=== PATIENT | female | born 1955 | race Caucasian/White ===

== ENCOUNTER → 2016-08-25 | Outpatient (CLI) | payer OTHER ==
[~2016-08-25] MED LIST: ACETAZOLAMIDE PO; ANT25 PO; BSP5 PO; CLOT-40 TOP; CLTP PO; DLN100 PO; IBUP600T44 PO; PHEN1TAB86 PO; SUMA50TA15 PO; TOPI25TA99 PO
--- NOTE | 2016-08-25 16:45 | MAMMOGRAPHY REPORT ---
BILATERAL DIGITAL SCREENING MAMMOGRAM WITH CAD: 08/25/2016 CLINICAL HISTORY: Routine screening. Patient has no complaints. TECHNIQUE: Bilateral CC and MLO views were obtained. Current study was also evaluated with a Comput er Aided Detection (CAD) system. COMPARISON: Comparison is made to exams dated: 08/13/2015 mammogram, 07/31/2014 mammogram - [facility], 07/28/2013 mammogram, 07/27/2012 mammogram - [facility], 07/03/2011 mammogram, and 07/01/2010 mammogram - [facility]. BREAST COMPOSITION: The tissue of both breasts is heterogeneously dense, which may obscure small ma sses. FINDINGS: There is a grouping of punctate microcalcifications in the upper outer posterior right yvette ast, which has decreased in size compared to prior mammograms, confirming benignity. No new suspici ous mass, architectural distortion or cluster of microcalcifications is seen. IMPRESSION: ACR BI-RADS CATEGORY 1: NEGATIVE There is no mammographic evidence of malignancy. A 1 year screening mammogram is recommended. The p atient will receive written notification of the results. Approximately 10% of breast cancers are not detected with mammography. A negative mammographic repor t should not delay biopsy if a clinically suggestive mass is present. Yudi Pollock M.D. ay/:08/25/2016 16:05:02 Steward/Stewardess Third: Anne-Marie GOMES)([place]), [facility] letter sent: Normal 1/2 BI-RADS Code: ACR BI-RADS Category 1: Negative
== END | disposition home or self-care (01) ==
LOC: C.MAMM 13:38
PROVIDERS: ATTEND Family Medicine
DX: Z12.31 Encounter for screening mammogram for malignant neoplasm of breast (principal)

== ENCOUNTER 2016-11-05 14:54 | Emergency (ER) | payer OTHER ==
[~2016-11-05] VITALS: Ht 160 cm; Wt 97.1 kg
[~2016-11-05 14:54] MED LIST changes: -CLOT-40 TOP
[2016-11-05 15:18] VITALS: BP 126/79; PULSE 73; TEMP 36.7; O2SAT 96; Ht 160 cm; Wt 97.1 kg
[2016-11-05] MEDS ORDERED: CLOT1CRE4 TOP (15:33)
--- NOTE | 2016-11-05 15:36 | EMERGENCY ROOM VISIT NOTE ---
History First contact with patient: 15:22 Chief Complaint: SKIN PROBLEM Stated Complaint: MARGUERITE ON ARM History of Present Illness The patient is a 61 year old female who presents to the Emergency Room via private vehicle with complaints of "marguerite on arm". The patient states that since yesterday she has noticed a slightly reddened raised region on the left forearm. It is not painful or itchy. She denies any nausea, vomiting, fevers or chills. Review of Systems A complete 6-point Review of Systems was discussed with the patient, with pertinent positives and negatives listed in the History of Present Illness. All remaining Review of Systems questions can be considered negative unless otherwise specified. Past Medical/Surgical History No pertinent Family History No pertinent Social History Smoking Status: Never Smoker Social History: Patient lives locally. Current/Historical Medications Scheduled Buspirone Hcl (Buspar *), 10 MG PO TID Calcium/Vitamin D (Caltrate 600 Plus *), 2 TAB PO BID Clotrimazole (Topical) (Lotrimin Af), 1 APPLN TOP BID Ibuprofen (Motrin), 600 MG PO Q6HR PRN Meclizine (Antivert *), 25 MG PO TID PRN Phenobarbital (Phenobarbital), 60 MG PO BID Phenytoin Sodium (Dilantin *), 100 MG PO TID Sumatriptan Succinate (Imitrex), 50 MG PO PRN Topiramate (Topamax ), 25 MG PO TID [Acetazolamide], 250 MG PO QID Allergies Coded Allergies: Aspirin (Unverified Allergy, Mild, "GET SICK", 06/08/09) Physical Exam Vital Signs Date Time Temp Pulse Resp B/P (MAP) Pulse Ox O2 Delivery O2 Flow Rate FiO2 11/05/16 15:18 36.7 73 22 126/79 96 Room Air Physical Exam VITAL SIGNS - Vital signs and nursing notes were reviewed. Stable. GENERAL -61-year-old female appearing her stated age who is in no acute distress. Communicates well with provider and answers questions appropriately. SKIN - there is a small, slightly raised red and circular region on the left ventral forearm that is consistent with that of tinea corporis. Medical Decision & Procedures Medical Decision Patient was seen and evaluated as above. After obtaining a thorough history and physical examination it was evident that she was experiencing a fungal infection, tinea corporis. At this time and treat her with topical antifungals , with close follow-up with her family doctor. She'll be given antifungal cream. No evidence of cellulitis at this time. She was educated upon worrisome symptoms which to return, had questions prior to discharge, and was discharged home in good condition. In evaluation treatment this patient following differential diagnoses were entertained: Cellulitis, burn, fungal infection, among others. Impression Primary Impression: Tinea corporis Departure Information Dispostion Home / Self-Care Condition GOOD Prescriptions Clotrimazole (Topical) (LOTRIMIN AF) 1 % Cre 1 APPLN TOP BID for 28 Days, #24 GM 1 Refill Prov: Gabriel Mendez PA-C 11/05/16 Referrals Drake Che III, M.D. (PCP) Patient Instructions My [facility] Additional Instructions You were seen in the emergency Department for redness of your skin. At this time I believe you have a small fungal infection, called ringworm or tinea corporis. This is treated with antifungal cream, he had been prescribed clotrimazole. This was sent to your pharmacy. This is to be applied as a small amount to your skin where the redness is on your arm, twice daily for up to 4 weeks. Please wash your hands after. Please call your family doctor to schedule follow-up regarding today's visit. Please return to emergency department with any new/concerning symptoms, such as worsening of the redness, fevers, chills.
== END 2016-11-05 15:45 | disposition home or self-care (01) ==
LOC: C.EDB 14:54 → C.EDD 15:45
DX: B35.4 Tinea corporis (principal); Z79.899 Other long term (current) drug therapy

== ENCOUNTER 2016-11-09 10:44 | Emergency (ER) | payer OTHER ==
[~2016-11-09] VITALS: Ht 162.6 cm; Wt 90.2 kg
[~2016-11-09 10:44] MED LIST changes: +CLOT1CRE4 TOP
[2016-11-09 10:49] VITALS: TEMP 36.9; Ht 162.6 cm; Wt 90.2 kg
--- NOTE | 2016-11-09 12:02 | DIAGNOSTIC IMAGING REPORT ---
RIGHT ANKLE 3 VIEWS CLINICAL HISTORY: Right ankle injury. Fall yesterday. FINDINGS: 3 views of the right ankle are obtained. No prior studies are available for comparison at the time of dictation. The skeletal structures are osteopenic. No fracture is seen at the ankle joint. There is a questionable avulsed injury along the medial aspect of the foot seen only on the frontal view. The ankle mortise is intact. Degenerative spurring is seen along the dorsal aspect of the tarsal bones. There are dorsal and plantar calcaneal enthesophytes. A joint effusion is identified. Soft tissue edema is present throughout the visualized right lower extremity. IMPRESSION: 1. Soft tissue edema and joint effusion with no radiographic evidence of fracture at the ankle joint. 2. Question an avulsion fracture along the medial aspect of the foot. This is only seen on the frontal view and may arise from the calcaneus. Correlate for point tenderness at this site. Electronically signed by: Radames Morrison M.D. 11/09/2016 12:00 PM Dictated Date/Time: 11/09/2016 11:58 AM
--- NOTE | 2016-11-09 12:07 | EMERGENCY ROOM VISIT NOTE ---
ED Visit Note First contact with patient: 11:20 This Patient was discussed with the physician veterinary technician assistant, Arnaldo Castle PA-C. The pertinent historical and physical exam findings were confirmed. I agree with the studies ordered and with the interpretations of these studies. I agree with the disposition and care plan.
--- NOTE | 2016-11-09 12:44 | EMERGENCY ROOM VISIT NOTE ---
ED Visit Note First contact with patient: 11:20 CHIEF COMPLAINT: Ankle pain HISTORY OF PRESENT ILLNESS: This 61-year-old female patient presents to the emergency department after sustaining an injury to the right ankle and foot with a twisting, inversion motion after stepping in a hole in a grocery store parking lot roughly 14 hours ago. The patient complains of pain along the outside of the ankle. The patient does not have pain of the foot. The patient rates the pain as dull and 2/10. The patient is able to bear weight on the foot. Constant pain, worse with movement, weight bearing, and the dependent position. No knee pain, the patient is able to move their toes. No numbness or weakness of the foot, no laceration. The patient has not had a previous fracture to this ankle. The patient has taken nothing for the pain. The patient denies any other injury. REVIEW OF SYSTEMS: A 6 system review of systems was completed with positives and pertinent negatives listed in the HPI. ALLERGIES: No known allergies MEDICATIONS: See EMR PMH: See EMR SOCIAL HISTORY: Lives locally PHYSICAL EXAM: Vital Signs: Reviewed Nurse's notes, vital signs stable. GENERAL : White female, no acute distress, but appears in pain, well-developed, well- nourished. MENTAL STATUS: Alert, oriented to person place and time, and cooperative. MUSCULOSKELETAL: The right ankle is not swollen and tender over the lateral malleolus, but the skin is intact and there is no ligamentous instability. There is not fifth metatarsal tenderness. There is no tenderness over the rest of the foot. There is no calf or tibia/fibular tenderness. There is no visual deformity. The foot and toes are warm and well-perfused. Dorsalis pedis pulse 2+. Sensation to pain and light touch is intact. Capillary refill less than 2 seconds. RIGHT ANKLE 3 VIEWS CLINICAL HISTORY: Right ankle injury. Fall yesterday. FINDINGS: 3 views of the right ankle are obtained. No prior studies are available for comparison at the time of dictation. The skeletal structures are osteopenic. No fracture is seen at the ankle joint. There is a questionable avulsed injury along the medial aspect of the foot seen only on the frontal view. The ankle mortise is intact. Degenerative spurring is seen along the dorsal aspect of the tarsal bones. There are dorsal and plantar calcaneal enthesophytes. A joint effusion is identified. Soft tissue edema is present throughout the visualized right lower extremity. IMPRESSION: 1. Soft tissue edema and joint effusion with no radiographic evidence of fracture at the ankle joint. 2. Question an avulsion fracture along the medial aspect of the foot. This is only seen on the frontal view and may arise from the calcaneus. Correlate for point tenderness at this site. EMERGENCY DEPARTMENT COURSE: I examined the patient. X-rays of the right ankle were reviewed by myself and read by radiology and reveal no fracture of the ankle joint. The x-ray showed a questionable avulsion fracture along the medial foot. On reexamination the patient was without tenderness throughout this distribution. She has also without significant tenderness of the calcaneus. An Brian wrap was applied to the ankle under my direction and the position was satisfactory. The patient was given a walker. Neurovascular status was rechecked and intact. She will need to follow with orthopedics with any ongoing or persistent symptoms. Current/Historical Medications Scheduled Buspirone Hcl (Buspar *), 10 MG PO TID Calcium/Vitamin D (Caltrate 600 Plus *), 2 TAB PO BID Meclizine (Antivert *), 25 MG PO TID PRN Phenobarbital (Phenobarbital), 60 MG PO BID Phenytoin Sodium (Dilantin *), 100 MG PO TID Sumatriptan Succinate (Imitrex), 50 MG PO PRN Topiramate (Topamax ), 25 MG PO BID Allergies Coded Allergies: Aspirin (Unverified Allergy, Mild, "GET SICK", 11/09/16) Vital Signs Date Time Temp Pulse Resp B/P (MAP) Pulse Ox O2 Delivery O2 Flow Rate FiO2 11/09/16 10:49 36.9 75 18 161/91 95 Room Air Departure Information Impression Primary Impression: Injury of right ankle Dispostion Home / Self-Care Condition GOOD Referrals Nick Navarrete MD Forms HOME CARE DOCUMENTATION FORM, IMPORTANT VISIT INFORMATION Patient Instructions My [facility] Additional Instructions You were seen and evaluated today on an emergency basis only. This is not a substitute for, or an effort to provide, complete comprehensive medical care. It is not possible to recognize and treat all injuries or illnesses in a single emergency department visit. For this reason it is recommended that you followup with [facility] , Dr. Navarrete's office, this week for ongoing care and evaluation. For baseline pain relief you may alternate ibuprofen and acetaminophen every 4 hours for pain control. Take 600 mg ibuprofen (Advil) and then 4 hours later take 1000 mg acetaminophen (Tylenol). Do not take more than 3000 mg acetaminophen in a single day. Wear your splint and use your walker until otherwise instructed by orthopedics. You are welcome to return to the emergency department anytime with new, worsening, or concerning symptoms.
[2016-11-09 12:45] VITALS: BP 137/88; PULSE 83; O2SAT 98
== END 2016-11-09 12:45 | disposition home or self-care (01) ==
LOC: EDBD 10:44 → C.EDB 10:45
DX: S99.911A Unspecified injury of right ankle, initial encounter (principal); X50.9XXA Other and unspecified overexertion or strenuous movements or postures, initial encounter

== ENCOUNTER → 2017-08-31 | Outpatient (CLI) | payer OTHER ==
[~2017-08-31] MED LIST changes: -ACETAZOLAMIDE PO; -CLOT1CRE4 TOP; -IBUP600T44 PO
--- NOTE | 2017-09-01 12:47 | MAMMOGRAPHY REPORT ---
BILATERAL DIGITAL SCREENING MAMMOGRAM TOMOSYNTHESIS WITH CAD: 08/31/2017 CLINICAL HISTORY: Routine screening. Patient has no complaints. TECHNIQUE: Breast tomosynthesis in addition to standard 2D mammography was performed. Current study was also evaluated with a Computer Aided Detection (CAD) system. COMPARISON: Comparison is made to exams dated: 08/25/2016 mammogram, 08/13/2015 mammogram, 07/31/2014 m ammogram - [facility], 07/28/2013 mammogram, 07/27/2012 mammogram - [facility], and 07/03/2011 mammogram - [facility]. BREAST COMPOSITION: The tissue of both breasts is heterogeneously dense, which may obscure small mas ses. FINDINGS: The pattern is similar to prior mammograms. A cluster of punctate microcalcifications in t he upper outer posterior right breast is decreasing in size comparing back to the 2009 mammograms, co nfirming benignity. No new suspicious mass, architectural distortion or cluster of microcalcificatio ns is seen. IMPRESSION: ACR BI-RADS CATEGORY 1: NEGATIVE There is no mammographic evidence of malignancy. A 1 year screening mammogram is recommended. The pa tient will receive written notification of the results. Approximately 10% of breast cancers are not detected with mammography. A negative mammographic report should not delay biopsy if a clinically suggestive mass is present. Yudi Pollock M.D. ay/:08/31/2017 17:09:18 Branch Service Specialist: Evelina NIELSEN(R)(M), [facility] letter sent: Normal 1/2 BI-RADS Code: ACR BI-RADS Category 1: Negative
== END | disposition home or self-care (01) ==
LOC: C.MAMM 14:28
PROVIDERS: ATTEND Physician Assistant
DX: Z12.31 Encounter for screening mammogram for malignant neoplasm of breast (principal)

== ENCOUNTER 2021-05-25 06:21 | Inpatient (IN) ==
[2021-05-25] MEDS ORDERED: SODIUM CHLORIDE 0.9% 1000ML 500 ML IV ONE (06:39)
--- NOTE | 2021-05-25 06:45 | Emergency Department Note ---
History of Present Illness General Chief complaint: Abdominal Pain Stated complaint: ABDOMINAL PAIN/NO BM FOR SEVERAL DAYS; Time Seen by Provider: 05/25/21 06:29 Source: patient, RN notes reviewed and old records reviewed Mode of arrival: EMS Limitations: no limitations History of Present Illness Maximum Pain Intensity: 8 This patient is a 66-year-old female who is brought in by EMS after having lower abdominal pain and no bowel movement for 3 to 4 days. She has also had dysuria and frequency. She does have a history of seizure disorder but denies any recent seizures. She initially denied nausea and vomiting but then told me she was not taking her Dilantin for couple days because she felt nauseated. Denies fever or chills. She has had the COVID-vaccine but no booster she has mild back pain no numbness or weakness in her legs no fall or trauma. No shortness of breath or chest pain. No trauma or injury. Nothing particular makes her pain better or worse. Home Medications Medication Instructions Recorded Confirmed Type buspirone 10 mg tablet 10 mg PO TID 03/13/20 05/25/21 History furosemide 20 mg tablet 20 mg PO Q OTHER DAY 03/13/20 05/25/21 History phenobarbital 32.4 mg tablet 32.4 mg PO BID 03/13/20 05/25/21 History sumatriptan succinate 50 mg tablet 50 mg PO Q2H PRN 03/13/20 05/25/21 History topiramate 25 mg tablet (Topamax) 25 mg PO BID 03/13/20 05/25/21 History phenytoin sodium extended 100 mg 100 mg PO TID 05/25/21 05/25/21 History capsule Allergies Allergy/AdvReac Type Severity Reaction Status Date / Time aspirin Allergy Mild "GET SICK" Unverified 05/25/21 08:12 Past Med/Surg History Medical History Left asymmetrical SNHL Seizure disorder Sensorineural hearing loss (SNHL) of left ear with restricted hearing of right ear Family History Other Cancer Hypertension No family history of adverse response to anesthesia No family history of bleeding disorder Social History Smoking Status: Never smoker Hx Alcohol Use: No Hx Substance Use: No Preferred Language: Singaporean Feels Safe at Home: Yes Review of Systems A total of 10 systems reviewed and were otherwise negative Physical Exam Vital Signs Vital Signs - 24 hr 05/25/21 06:26 05/25/21 06:32 05/25/21 06:50 Temperature 36.7 C Temperature Source Oral Pulse Rate 77 75 Pulse Rate [Finger] 77 Pulse Rhythm Regular Pulse Rhythm [Finger] Regular Pulse Strength Normal Pulse Strength [Finger] Normal Respiratory Rate 18 18 18 Respiratory Effort / Characteristics Non-Labored Spontaneous Non-Labored Spontaneous Respiratory Depth Normal Normal Blood Pressure 175/86 H Blood Pressure [Right Arm] 175/86 H Blood Pressure Mean 115 Blood Pressure Mean [Right Arm] 115 Blood Pressure Position Lying Blood Pressure Position [Right Arm] Lying Pulse Oximetry 99 99 99 Oxygen Delivery Method Room Air Room Air Room Air Sepsis Recent Fever Within 48 Hours No Sepsis New/Unexplained Change in Mental Status No Sepsis Action Taken by Nursing No Action Required 05/25/21 07:40 Temperature Temperature Source Pulse Rate Pulse Rate [Finger] 78 Pulse Rhythm Pulse Rhythm [Finger] Pulse Strength Pulse Strength [Finger] Respiratory Rate 18 Respiratory Effort / Characteristics Respiratory Depth Blood Pressure Blood Pressure [Right Arm] 159/78 H Blood Pressure Mean Blood Pressure Mean [Right Arm] 105 Blood Pressure Position Blood Pressure Position [Right Arm] Lying Pulse Oximetry 99 Oxygen Delivery Method Room Air Sepsis Recent Fever Within 48 Hours Sepsis New/Unexplained Change in Mental Status Sepsis Action Taken by Nursing General: Well developed well nourished middle-aged female who appears mildly hard of hearing but in no acute distress, breathing comfortably on room air. Normal speech HEENT: Normal cephalic atraumatic. Pupils are equal round and reactive to light. Extraocular movements are intact. Oropharynx is pink with moist mucous membranes. No swelling of the mouth lips or tongue. Neck: Supple with a midline trachea. No meningeal signs or stiffness, no JVD or bruits. No Stridor. Chest: Clear to auscultation bilaterally. No wheezes or rhonchi. No increased work of breathing. Heart: Regular rate and rhythm without murmurs or gallops. Abdomen: Soft mildly diffusely tender in the lower abdomen, nondistended without rebound guarding or rigidity. No peritonitis Extremities: No cyanosis clubbing or edema. No calf tenderness or assymetry Spine/Back. Non tender to palpation. No CVA tenderness Skin: Good turgor without rashes. Neurologic exam: Cranial nerves two through 12 are intact. Motor and sensation are intact and symmetrical throughout. No tremor. Course Administered Medications Acetaminophen (Acetaminophen 500 Mg Tab) 500 mg PO TID MARIA ANTONIA Stop: 06/24/21 08:59 Last Admin: 05/25/21 14:47 Dose: 500 mg Documented by: [id number] Admin: 05/25/21 09:14 Dose: 500 mg Documented by: [id number] Buspirone HCl (Buspirone 5 Mg Tab) 10 mg PO TID MARIA ANTONIA Stop: 06/24/21 11:14 Last Admin: 05/25/21 14:42 Dose: 10 mg Documented by: [id number] Admin: 05/25/21 12:14 Dose: 10 mg Documented by: [id number] Sodium Chloride (Nss 1000ml) 1,000 mls @ 75 mls/hr IV .[id number] MARIA ANTONIA Stop: 06/24/21 10:54 Last Admin: 05/25/21 12:31 Dose: 75 mls/hr Documented by: [id number] Multivitamins/Minerals (Calcium 600mg + Vit D 400 Iu Tab) 1 tab PO BID MARIA ANTONIA Stop: 06/24/21 10:54 Last Admin: 05/25/21 12:13 Dose: 1 tab Documented by: [id number] Phenobarbital (Phenobarbital 32.4 Mg Tab) 32.4 mg PO BID MARIA ANTONIA Stop: 06/24/21 10:54 Last Admin: 05/25/21 12:14 Dose: 32.4 mg Documented by: [id number] Polyethylene Glycol (Polyethylene (Miralax) 17 Gm Pack) 17 gm PO DAILY MARIA ANTONIA Stop: 06/24/21 10:54 Last Admin: 05/25/21 14:42 Dose: 17 gm Documented by: [id number] Discontinued Medications Sodium Chloride (Nss 1000ml) 500 mls @ 999 mls/hr IV .Q31M ONE Stop: 05/25/21 07:09 Last Infusion: 05/25/21 07:43 Dose: 0 mls/hr Documented by: [id number] Admin: 05/25/21 06:53 Dose: 999 mls/hr Documented by: [id number] Potassium Chloride (K David / Wtr) 10 meq in 100 mls @ 100 mls/hr IV Q1H STA; Protocol Stop: 05/25/21 09:52 Last Infusion: 05/25/21 10:15 Dose: 0 mls/hr Documented by: [id number] Admin: 05/25/21 09:11 Dose: 100 mls/hr Documented by: [id number] Ioversol (Optiray 320 100ml) 94 ml IV ONCE ONE Stop: 05/25/21 07:17 Last Admin: 05/25/21 07:17 Dose: 94 ml Documented by: [id number] Phenytoin (Phenytoin Susp 125 Mg/5 Ml) 300 mg PO ONE ONE Stop: 05/25/21 09:16 Last Admin: 05/25/21 09:12 Dose: 300 mg Documented by: [id number] Medical Decision Making Differential Diagnosis Bowel obstruction, constipation, UTI, kidney stone, sepsis, viral illness, electrolyte or metabolic abnormality, colitis, appendicitis, diverticulitis, COVID, neurologic process, medication side effect Medical Records Attestation: I reviewed the patient's medical records. Home Medications Current Medication List: was personally reviewed by me Laboratory Data Attestation: I reviewed the patient's lab results. Result diagrams: 05/25/21 11:24 05/25/21 11:24 Lab Results 05/25/21 05/25/21 05/25/21 Range/Units 06:50 06:50 06:50 WBC 4.85 (4.8-10.8) K/uL RBC 3.95 L (4.2-5.4) M/uL Hgb 12.8 (12.0-16.0) g/dL POC Hgb (12.0-16.0) g/dl Hct 35.5 L (37-47) % POC Hct (37-47) % MCV 89.9 (80-100) fL MCH 32.4 (25-34) pg MCHC 36.1 H (32-36) g/dL RDW Std Deviation 41.5 (36.4-46.3) fL RDW Coeff of Frantz 12.5 (11.5-14.5) % Plt Count 332 (130-400) K/uL MPV 9.1 (7.4-10.4) fL Immature Gran % (Auto) 0.0 % Neut % (Auto) 61.9 % Lymph % (Auto) 23.1 % [place] % (Auto) 14.2 % Eos % (Auto) 0.4 % Baso % (Auto) 0.4 % Neut # (Auto) 3.00 (1.4-6.5) K/uL Lymph # (Auto) 1.12 L (1.2-3.4) K/uL [place] # (Auto) 0.69 H (0.11-0.59) K/uL Eos # (Auto) 0.02 (0-0.5) K/uL Baso # (Auto) 0.02 (0-0.2) K/uL Immature Gran # (Auto) 0.00 (0.00-0.02) K/uL POC Sodium (135-144) mmol/L Sodium 124 L (136-145) mmol/L POC Potassium (3.3-5.0) mmol/L Potassium 3.1 L (3.5-5.1) mmol/L POC Chloride (101-112) mmol/L Chloride 91 L (98-107) mmol/L Carbon Dioxide 25 (21-32) mmol/L POC Total CO2 (24-31) mmol/L Anion Gap 8 (3-11) POC Anion Gap (16-25) mmol/L POC BUN (7-18) mg/dl BUN 4 L (6-23) mg/dl Creatinine 0.61 (0.6-1.2) mg/dl POC Creatinine (0.6-1.3) mg/dl Est Cr Clr Drug Dosing 88.6 ml/min Est GFR ( Amer) 108.7 ml/min Est GFR (Non-Af Amer) 93.8 ml/min BUN/Creatinine Ratio 6.6 L (10-20) Glucose 125 H (70-99(Fasting)) mg/dl POC Glucose (other) (70-99) mg/dl Calcium 8.8 (8.5-10.1) mg/dl POC Ioniz Calcium [place] (1.12-1.32) mmol/l Total Bilirubin 0.6 (0.2-1.0) mg/dl AST 18 (13-39) U/L ALT 10 (7-52) U/L Alkaline Phosphatase 79 (34-104) U/L Total Protein 6.7 (6.0-8.3) gm/dl Albumin 4.0 (3.4-5.0) gm/dl Globulin 2.7 (2.5-4.0) gm/dl Albumin/Globulin Ratio 1.5 (0.9-2) Lipase 19 (11-82) U/L Urine Color Urine Appearance (Clear) Urine pH (4.5-7.5) Ur Specific [place] (1.000-1.030) Urine Protein (Negative) Urine Glucose (UA) (Negative) Urine Ketones (Negative) Urine Blood (Negative) Urine Nitrite (Negative) Urine Bilirubin (Negative) Urine Urobilinogen (Negative) Ur Leukocyte Esterase (Negative) Phenytoin < 3.0 L (10-20) mcg/ml Phenobarbital (10-40) mcg/ml SARS-CoV-2, RNA, NAAT (NEGATIVE) 05/25/21 05/25/21 05/25/21 Range/Units 06:57 07:48 08:22 WBC (4.8-10.8) K/uL RBC (4.2-5.4) M/uL Hgb (12.0-16.0) g/dL POC Hgb 12.6 (12.0-16.0) g/dl Hct (37-47) % POC Hct 37 (37-47) % MCV (80-100) fL MCH (25-34) pg MCHC (32-36) g/dL RDW Std Deviation (36.4-46.3) fL RDW Coeff of Frantz (11.5-14.5) % Plt Count (130-400) K/uL MPV (7.4-10.4) fL Immature Gran % (Auto) % Neut % (Auto) % Lymph % (Auto) % [place] % (Auto) % Eos % (Auto) % Baso % (Auto) % Neut # (Auto) (1.4-6.5) K/uL Lymph # (Auto) (1.2-3.4) K/uL [place] # (Auto) (0.11-0.59) K/uL Eos # (Auto) (0-0.5) K/uL Baso # (Auto) (0-0.2) K/uL Immature Gran # (Auto) (0.00-0.02) K/uL POC Sodium 125 L (135-144) mmol/L Sodium (136-145) mmol/L POC Potassium 3.0 L (3.3-5.0) mmol/L Potassium (3.5-5.1) mmol/L POC Chloride 88 L (101-112) mmol/L Chloride (98-107) mmol/L Carbon Dioxide (21-32) mmol/L POC Total CO2 24 (24-31) mmol/L Anion Gap (3-11) POC Anion Gap 17.0 (16-25) mmol/L POC BUN < 3 L (7-18) mg/dl BUN (6-23) mg/dl Creatinine (0.6-1.2) mg/dl POC Creatinine 0.5 L (0.6-1.3) mg/dl Est Cr Clr Drug Dosing ml/min Est GFR ( Amer) ml/min Est GFR (Non-Af Amer) ml/min BUN/Creatinine Ratio (10-20) Glucose (70-99(Fasting)) mg/dl POC Glucose (other) 131 H (70-99) mg/dl Calcium (8.5-10.1) mg/dl POC Ioniz Calcium [place] 1.13 (1.12-1.32) mmol/l Total Bilirubin (0.2-1.0) mg/dl AST (13-39) U/L ALT (7-52) U/L Alkaline Phosphatase (34-104) U/L Total Protein (6.0-8.3) gm/dl Albumin (3.4-5.0) gm/dl Globulin (2.5-4.0) gm/dl Albumin/Globulin Ratio (0.9-2) Lipase (11-82) U/L Urine Color Yellow Urine Appearance Clear (Clear) Urine pH 8.0 H (4.5-7.5) Ur Specific [place] 1.010 (1.000-1.030) Urine Protein Negative (Negative) Urine Glucose (UA) Negative (Negative) Urine Ketones Negative (Negative) Urine Blood Negative (Negative) Urine Nitrite Negative (Negative) Urine Bilirubin Negative (Negative) Urine Urobilinogen Negative (Negative) Ur Leukocyte Esterase Negative (Negative) Phenytoin (10-20) mcg/ml Phenobarbital (10-40) mcg/ml SARS-CoV-2, RNA, NAAT NEGATIVE (NEGATIVE) 05/25/21 Range/Units 08:46 WBC (4.8-10.8) K/uL RBC (4.2-5.4) M/uL Hgb (12.0-16.0) g/dL POC Hgb (12.0-16.0) g/dl Hct (37-47) % POC Hct (37-47) % MCV (80-100) fL MCH (25-34) pg MCHC (32-36) g/dL RDW Std Deviation (36.4-46.3) fL RDW Coeff of Frantz (11.5-14.5) % Plt Count (130-400) K/uL MPV (7.4-10.4) fL Immature Gran % (Auto) % Neut % (Auto) % Lymph % (Auto) % [place] % (Auto) % Eos % (Auto) % Baso % (Auto) % Neut # (Auto) (1.4-6.5) K/uL Lymph # (Auto) (1.2-3.4) K/uL [place] # (Auto) (0.11-0.59) K/uL Eos # (Auto) (0-0.5) K/uL Baso # (Auto) (0-0.2) K/uL Immature Gran # (Auto) (0.00-0.02) K/uL POC Sodium (135-144) mmol/L Sodium (136-145) mmol/L POC Potassium (3.3-5.0) mmol/L Potassium (3.5-5.1) mmol/L POC Chloride (101-112) mmol/L Chloride (98-107) mmol/L Carbon Dioxide (21-32) mmol/L POC Total CO2 (24-31) mmol/L Anion Gap (3-11) POC Anion Gap (16-25) mmol/L POC BUN (7-18) mg/dl BUN (6-23) mg/dl Creatinine (0.6-1.2) mg/dl POC Creatinine (0.6-1.3) mg/dl Est Cr Clr Drug Dosing ml/min Est GFR ( Amer) ml/min Est GFR (Non-Af Amer) ml/min BUN/Creatinine Ratio (10-20) Glucose (70-99(Fasting)) mg/dl POC Glucose (other) (70-99) mg/dl Calcium (8.5-10.1) mg/dl POC Ioniz Calcium [place] (1.12-1.32) mmol/l Total Bilirubin (0.2-1.0) mg/dl AST (13-39) U/L ALT (7-52) U/L Alkaline Phosphatase (34-104) U/L Total Protein (6.0-8.3) gm/dl Albumin (3.4-5.0) gm/dl Globulin (2.5-4.0) gm/dl Albumin/Globulin Ratio (0.9-2) Lipase (11-82) U/L Urine Color Urine Appearance (Clear) Urine pH (4.5-7.5) Ur Specific [place] (1.000-1.030) Urine Protein (Negative) Urine Glucose (UA) (Negative) Urine Ketones (Negative) Urine Blood (Negative) Urine Nitrite (Negative) Urine Bilirubin (Negative) Urine Urobilinogen (Negative) Ur Leukocyte Esterase (Negative) Phenytoin (10-20) mcg/ml Phenobarbital 21.9 (10-40) mcg/ml SARS-CoV-2, RNA, NAAT (NEGATIVE) Imaging Data Radiologist's Impression: Abdomen/Pelvis CT 05/25/21 06:40 CT SCAN OF THE ABDOMEN AND PELVIS WITH IV CONTRAST CLINICAL HISTORY: Generalized abdominal pain. COMPARISON STUDY: No priors. TECHNIQUE: Following the IV administration of 94 cc of Optiray 320, CT scan of the abdomen and pelvis is performed from the lung bases to the proximal femora. Images are reviewed in the axial, sagittal, and coronal planes. IV contrast was administered without complication. A dose lowering technique was utilized adhering to the principles of ALARA. CT DOSE: 530.63 mGy.cm FINDINGS: Lung bases: The heart is normal in size and without pericardial effusion. Patchy nodular airspace consolidation is seen at the left lung base. The lung bases clear. No pleural effusion is identified. A small hiatal hernia is noted. Liver: The contrast-enhanced liver is normal in size, contour, and attenuation. There is no intrahepatic biliary ductal dilatation. The hepatic veins and portal veins are patent. Gallbladder: Unremarkable. Spleen: Normal in size and attenuation. Pancreas: Moderately atrophic and grossly unremarkable. Adrenal glands: Unremarkable. Kidneys: The contrast enhanced kidneys demonstrate mild cortical atrophy and are without hydronephrosis. The kidneys enhance symmetrically. Scattered subcentimeter cortical hypodensities likely represent cysts but are too small for definitive characterization. Abdominal vasculature: The abdominal aorta is normal in course and caliber. Bowel: The small bowel and colon are normal in course and caliber. The appendix is well-visualized and normal. Peritoneum: There is no intraperitoneal free air or abdominal ascites. Lymphadenopathy: None. Pelvic viscera: The bladder, uterus, and adnexa are normal as visualized. Skeletal structures: The skeletal structures are osteopenic. There is mild to moderate lumbosacral spondylosis. A large posterior disc osteophyte complexes seen at T12-L1. No lytic or blastic lesions are seen. IMPRESSION: 1. There are no acute infectious or inflammatory findings in the abdomen or pelvis. 2. Patchy nodular consolidative change is seen in the left lower lobe an likely represents an infectious/inflammatory pneumonitis. A 3 month follow-up chest CT scan is recommended to document resolution. 3. Additional findings as above. ACT 112: Positive. There are findings on this exam that require communication between the performing entity and the patient following Patient Test Result [place] Act ([place] Act 112) guidelines. Electronically signed by: Radames Morrison M.D. 05/25/2021 7:37 AM ECG Data Attestation: I personally reviewed and interpreted this ECG as follows: Indication: + abdominal pain Rate (beats per minute): 79 Rhythm: + sinus with SA ECG Intervals/blocks: + Normal QRS, + Normal QT and + Normal NH ECG [place]: + Normal ECG ST segments: + Normal ST segments ECG Findings: + Other (Nonspecific T wave abnormality); no PACs or no PVCs Comparison ECG Date: from (08/21/15) Change: the following changes noted (Nonspecific T wave abnormalities are now present) MDM Narrative This patient comes in as described above. She was placed on a cardiac care nurse room C 11. She came in by EMS. She has stable vital signs. IV access was e stablished and she was gently hydrated with a IV normal saline bolus. She has lower abdominal pain constipation and urinary symptoms as well. IV access was established bladder scan was obtained multiple blood testing was ordered as as well as a CAT scan and EKG. Given the fact that she is on Dilantin I also ordered a Dilantin level. She has no neurologic deficits in her lower extremities. She was reassessed frequently. EKG does not suggest ischemic change or significant arrhythmia. She has no white count or fever to suggest infection. She has no significant anemia. Bladder scan had only 100 cc therefore she has no significant retention of urine. Her sodium came back significant low at 124 I do not have an old one for comparison. I did also call and talk to her relative/cousin at [phone]. He agrees with the plan. Her Dilantin level was essentially 0. She has had no recent seizures but with a low sodium I feel we need to load her I did talk to the pharmacist we do not have IV Cerebyx at this point so I will do a p.o. load of 300 mg of Dilantin. He agrees with this. I did consult Dr. Mattson to see the patient in the ER Continuous cardiac monitoring: Orders placed in EMR for continuous cardiac care nurse. Upon my interpretation the patient was noted to be normal sinus rhythm with a rate of 85 Impression & Plan Acute hyponatremia, Abdominal pain, Weakness, Lab test negative for COVID-19 virus, Seizure disorder Discharge Plan Visit Data Chief Complaint: Abdominal Pain Stated Complaint: ABDOMINAL PAIN/NO BM FOR SEVERAL DAYS; ED Provider: Vinicius Vivas Discharge Problem: Acute hyponatremia, Abdominal pain, Weakness, Lab test negative for COVID-19 virus, Seizure disorder Patient Disposition: Admitted As Inpatient Discharge Instructions Interventions: ED Discharge Assessment Last Done: 05/25/21 09:57
[2021-05-25 07:04] LABS: Basophils # (auto) 0.02 K/uL (0-0.2); Basophils % (auto) 0.4 %; Eosinophils # (auto) 0.02 K/uL (0-0.5); Eosinophils % (auto) 0.4 %; Hematocrit (blood only) 35.5 % (37-47); Hemoglobin 12.8 g/dL (12.0-16.0); Lymphocytes # (auto) 1.12 K/uL (1.2-3.4); Lymphocytes % (auto) 23.1 %; Mean Corpuscular Hemoglobin 32.4 pg (25-34); Mean Corpuscular Hgb Conc 36.1 g/dL (32-36); Mean Corpuscular Volume 89.9 fL (80-100); Mean Platelet Volume 9.1 fL (7.4-10.4); Monocytes # (auto) 0.69 K/uL (0.11-0.59); Monocytes % (auto) 14.2 %; Neutrophils % (auto) 61.9 %; Platelet Count 332 K/uL (130-400); RDW Coefficient of Variation 12.5 % (11.5-14.5); RDW Standard Deviation 41.5 fL (36.4-46.3); Red Blood Count 3.95 M/uL (4.2-5.4); White Blood Count 4.85 K/uL (4.8-10.8)
[2021-05-25 07:10] LABS: iSTAT Blood Urea Nitrogen < 3 mg/dl (7-18); iSTAT Carbon Dioxide 24 mmol/L (24-31); iSTAT Chloride 88 mmol/L (101-112); iSTAT Creatinine 0.5 mg/dl (0.6-1.3); iSTAT Glucose 131 mg/dl (70-99); iSTAT Hematocrit 37 % (37-47); iSTAT Hemoglobin 12.6 g/dl (12.0-16.0); iSTAT Ionized Calcium 1.13 mmol/l (1.12-1.32); iSTAT Sodium 125 mmol/L (135-144)
[2021-05-25] MEDS ORDERED: OPTIRAY 320 100ml IV ONE (07:16)
[2021-05-25 07:35] LABS: Albumin Globulin Ratio 1.5 (0.9-2); BUN Creatinine Ratio 6.6 (10-20); Bilirubin,Total 0.6 mg/dl (0.2-1.0); Calcium 8.8 mg/dl (8.5-10.1); Creatinine Clr Calc Pharmacy 88.6 ml/min; Est GFR (African American) 108.7 ml/min; Est GFR (Non-African American) 93.8 ml/min; Globulin 2.7 gm/dl (2.5-4.0); Potassium 3.1 mmol/L (3.5-5.1); Total Protein 6.7 gm/dl (6.0-8.3)
--- NOTE | 2021-05-25 07:39 | CT Scan Report ---
CT SCAN OF THE ABDOMEN AND PELVIS WITH IV CONTRAST CLINICAL HISTORY: Generalized abdominal pain. COMPARISON STUDY: No priors. TECHNIQUE: Following the IV administration of 94 cc of Optiray 320, CT scan of the abdomen and pelvi s is performed from the lung bases to the proximal femora. Images are reviewed in the axial, sagittal , and coronal planes. IV contrast was administered without complication. A dose lowering technique wa s utilized adhering to the principles of ALARA. CT DOSE: 530.63 mGy.cm FINDINGS: Lung bases: The heart is normal in size and without pericardial effusion. Patchy nodular airspace con solidation is seen at the left lung base. The lung bases clear. No pleural effusion is identified. A small hiatal hernia is noted. Liver: The contrast-enhanced liver is normal in size, contour, and attenuation. There is no intrahepa tic biliary ductal dilatation. The hepatic veins and portal veins are patent. Gallbladder: Unremarkable. Spleen: Normal in size and attenuation. Pancreas: Moderately atrophic and grossly unremarkable. Adrenal glands: Unremarkable. Kidneys: The contrast enhanced kidneys demonstrate mild cortical atrophy and are without hydronephros is. The kidneys enhance symmetrically. Scattered subcentimeter cortical hypodensities likely represen t cysts but are too small for definitive characterization. Abdominal vasculature: The abdominal aorta is normal in course and caliber. Bowel: The small bowel and colon are normal in course and caliber. The appendix is well-visualized a nd normal. Peritoneum: There is no intraperitoneal free air or abdominal ascites. Lymphadenopathy: None. Pelvic viscera: The bladder, uterus, and adnexa are normal as visualized. Skeletal structures: The skeletal structures are osteopenic. There is mild to moderate lumbosacral sp ondylosis. A large posterior disc osteophyte complexes seen at T12-L1. No lytic or blastic lesions ar e seen. IMPRESSION: 1. There are no acute infectious or inflammatory findings in the abdomen or pelvis. 2. Patchy nodular consolidative change is seen in the left lower lobe an likely represents an infecti ous/inflammatory pneumonitis. A 3 month follow-up chest CT scan is recommended to document resolution . 3. Additional findings as above. ACT 112: Positive. There are findings on this exam that require communication between the performing entity and the patient following Patient Test Result [place] Act ([place] Act 112) guidelines. Electronically signed by: Radames Morrison M.D. 05/25/2021 7:37 AM
[2021-05-25 08:02] LABS: Appearance Urine Clear (Clear); Bilirubin Urine Negative (Negative); Blood Urine Negative (Negative); Color Urine Yellow; Glucose Urine UA Negative (Negative); Ketones Urine Negative (Negative); Leukocyte Esterase Urine Negative (Negative); Nitrite Urine Negative (Negative); Protein Urine Negative (Negative); Urobilinogen Urine Negative (Negative)
[2021-05-25] MEDS ORDERED: PHENYTOIN 100 MG/4 ML UDP PO STA (08:28)
[2021-05-25] MEDS ORDERED: POTASSIUM CHLORIDE / WTR 10 MEQ/100 ML PLCT IV STA (08:53)
[2021-05-25] MEDS: ACETAMINOPHEN 500 MG TAB PO SCH ×3 (09:14→20:06)
[2021-05-25] MEDS ORDERED: PHENYTOIN SUSP 125 MG/5 ML PO ONE (09:15)
--- NOTE | 2021-05-25 10:48 | XRay Report ---
LUMBAR SPINE 3 VIEWS CLINICAL HISTORY: Low back pain. FINDINGS: Three views of the lumbar spine are correlated with abdominal CT performed the same day 05/05. The skeletal structures are osteopenic. There is no radiographic evidence of fracture or mellissa lignment involving the lumbar spine. Vertebral body height and alignment are maintained throughout th e lumbar spine. Anterior and lateral marginal osteophytes are seen throughout. The transverse and spi nous processes appear intact. The disc spaces appear maintained. A posterior disc osteophyte complex is noted at T12-L1. The visualized sacrum and bony pelvis appear intact. Excreted IV contrast is note d within the renal collecting systems. There is no bowel obstruction. IMPRESSION: 1. No acute bony abnormality is seen involving the lumbar spine. 2. Osteopenia and mild spondylotic change as above. Dictated: 05/25/2021 10:14 AM Transcribed: 05/25/2021 10:28 AM Alisson [id number] [id number] Electronically signed by: Radames Morrison M.D. 05/25/2021 10:47 AM
[2021-05-25] MEDS ORDERED: hydrALAZINE HCL 20 MG/ML VIAL IV PRN (10:55)
[2021-05-25] MEDS ORDERED: SODIUM CHLORIDE 0.9% 1000ML 1,000 ML IV SCH (10:55)
[2021-05-25] MEDS ORDERED: MAGNESIUM HYDROXIDE SUSP 30 ML UDC PO PRN (10:55)
[2021-05-25] MEDS ORDERED: ONDANSETRON INJ 2 MG/ML 2 ML VIAL IV PRN (10:55)
[2021-05-25 11:42] LABS: Basophils # (auto) 0.01 K/uL (0-0.2); Basophils % (auto) 0.2 %; Eosinophils # (auto) 0.02 K/uL (0-0.5); Eosinophils % (auto) 0.4 %; Hematocrit (blood only) 35.5 % (37-47); Hemoglobin 12.7 g/dL (12.0-16.0); Lymphocytes # (auto) 0.98 K/uL (1.2-3.4); Lymphocytes % (auto) 20.1 %; Mean Corpuscular Hgb Conc 35.8 g/dL (32-36); Mean Corpuscular Volume 92.2 fL (80-100); Mean Platelet Volume 8.9 fL (7.4-10.4); Monocytes # (auto) 0.66 K/uL (0.11-0.59); Monocytes % (auto) 13.6 %; Neutrophils % (auto) 65.7 %; Platelet Count 332 K/uL (130-400); RDW Coefficient of Variation 12.7 % (11.5-14.5); Red Blood Count 3.85 M/uL (4.2-5.4); White Blood Count 4.87 K/uL (4.8-10.8)
[2021-05-25 12:04] LABS: BUN Creatinine Ratio 6.7 (10-20); Calcium 8.8 mg/dl (8.5-10.1); Est GFR (African American) 109.3 ml/min; Est GFR (Non-African American) 94.3 ml/min; Magnesium 1.7 mg/dl (1.7-2.4); Potassium 3.3 mmol/L (3.5-5.1)
[2021-05-25] MEDS: CALCIUM 600MG + VIT D 400 IU TAB PO SCH ×2 (12:13→20:04)
[2021-05-25] MEDS: busPIRone 5 MG TAB PO SCH ×3 (12:14→20:04)
[2021-05-25] MEDS: POLYETHYLENE (MIRALAX) 17 GM PACK PO SCH (14:42)
--- NOTE | 2021-05-25 16:46 | History & Physical Report ---
Date of Service May 25, 2021 Assessment & Plan (1) Abdominal pain: (2) Acute hyponatremia: (3) Weakness: Plan: 66-year-old female with a history of epilepsy, intellectual disability, prediabetes presenting with abdominal pain. Abdominal pain likely secondary to constipation Patient reports 2-3 bowel movements, formed today which relieved her abdominal pain Denies abdominal pain at the time of my exam AST and ALT within normal limits Lipase normal Denies urinary symptoms Urinalysis not showing any signs of UTI CT abdomen and pelvis: 1. There are no acute infectious or inflammatory findings in the abdomen or pelvis. 2. Patchy nodular consolidative change is seen in the left lower lobe an likely represents an infectious/inflammatory pneumonitis. A 3 month follow-up chest CT scan is recommended to document resolution. 3. Additional findings as above. Continue to monitor closely Hyponatremia Likely hypovolemia Given IV NSS Sodium improved from 124- 128 Sodium every 6 hours History of epilepsy Has not taken Dilantin secondary to nausea Resume Dilantin 100 mg 3 times daily Mild back pain Lumbar spine x-ray: 1. No acute bony abnormality is seen involving the lumbar spine. 2. Osteopenia and mild spondylotic change as above. Elevated blood pressure As needed hydralazine DVT prophylaxis Lovenox subcutaneous daily Disposition-anticipate discharge to home medically stable in 1 -2 days Lives in [facility] apartment Admission and Anticipated Discharge Date Admission Date: May 25, 2021 History of Present Illness Chief Complaint: Lower abdominal pain, constipation Primary Care Provider: Terri Barrios PA-C 66-year-old female with history of epilepsy, intellectual disability, prediabetes presenting with abdominal pain and constipation. Patient apparently brought in by ambulance after patient experienced abdominal pain earlier this morning. patient also reporting urinary symptoms and not being able to take her Dilantin secondary to nausea. At the ER, patient's sodium level found to be 124. CAT scan of abdomen pelvis: Unrevealing. Patient received 500 cc of IV NSS. On exam, patient was seen resting in bed, awake and alert, answers all questions appropriately. States she feels improved overall Abdominal pain, nausea has resolved. Denies any urinary symptoms, fevers or chills. No other symptoms. Allergies Allergy/AdvReac Type Severity Reaction Status Date / Time aspirin Allergy Mild "GET SICK" Unverified 05/25/21 08:12 Home Medications Medication Instructions Recorded Confirmed Type buspirone 10 mg tablet 10 mg PO TID 03/13/20 05/25/21 History furosemide 20 mg tablet 20 mg PO Q OTHER DAY 03/13/20 05/25/21 History phenobarbital 32.4 mg tablet 32.4 mg PO BID 03/13/20 05/25/21 History sumatriptan succinate 50 mg tablet 50 mg PO Q2H PRN 03/13/20 05/25/21 History topiramate 25 mg tablet (Topamax) 25 mg PO BID 03/13/20 05/25/21 History phenytoin sodium extended 100 mg 100 mg PO TID 05/25/21 05/25/21 History capsule Past Med/Surg History Medical History Left asymmetrical SNHL Seizure disorder Sensorineural hearing loss (SNHL) of left ear with restricted hearing of right ear Family History Other Cancer Hypertension No family history of adverse response to anesthesia No family history of bleeding disorder Social History Smoking Status: Never smoker Hx Alcohol Use: No Hx Substance Use: No Preferred Language: Irish Feels Safe at Home: Yes Review of Systems Review of Systems: all noted and negative except for above Physical Exam Physical Exam: General- oriented x 3, not in distress, speaks in sentences with no effort or accessory muscle use Head- atraumatic Eyes- PERRL, EOMI, anicteric ENT- oropharynx clear Neck- supple, no JVD, no adenopathy, no thyromegaly; carotids +2/2, no bruits appreciated Lungs- clear to auscultation bilaterally, no rales/wheezes Heart- normal rate, regular rhythm; no murmur, no gallop, no rub appreciated Abdomen- normal bowel sounds, nondistended, soft, nontender, no masses or hepatosplenomegaly Extremities- no pretibial edema, no calf tenderness; peripheral pulses intact Neuro- alert, oriented x 3; CN 2-12 grossly intact; motor 5/5 bilaterally;sensation 100% on all extremities; no other gross focal neurologic deficits Skin- warm & dry Results & Data Results & Data ([facility]) Vital Signs (Past 12 Hours) Vital Signs Temp Pulse Pulse Resp BP BP Pulse Ox 05/25/21 14:52 36.5 C 84 17 170/81 H 99 05/25/21 10:55 36.7 C 84 18 167/82 H 99 05/25/21 10:26 76 18 142/86 H 100 05/25/21 09:57 77 22 160/63 H 05/25/21 09:30 74 20 163/80 H 99 05/25/21 07:40 78 18 159/78 H 99 05/25/21 06:50 75 18 99 05/25/21 06:32 77 18 175/86 H 99 05/25/21 06:26 36.7 C 77 18 175/86 H 99 all noted and reviewed including below Code Status & VTE Plan VTE Prophylaxis Plan VTE Prophylaxis will be ordered: Yes (1) Abdominal pain Abdominal location: lower abdomen, unspecified Qualified Code(s): R10.30 - Lower abdominal pain, unspecified
[2021-05-25 17:26] LABS: BUN Creatinine Ratio 6.7 (10-20); Calcium 8.8 mg/dl (8.5-10.1); Est GFR (African American) 109.3 ml/min; Est GFR (Non-African American) 94.3 ml/min; Potassium 3.1 mmol/L (3.5-5.1)
[2021-05-25] MEDS ORDERED: XOPENEX/ATROVENT 1.25mg/0.5MG NEB COMBO NEB PRN (20:29)
[2021-05-25] MEDS ORDERED: LEVALBUTEROL 1.25MG/0.5ML NEB INH PRN (20:30)
[2021-05-25] MEDS ORDERED: IPRATROPIUM BROMIDE NEB SOLN 0.02% 2.5 ML VIAL INH PRN (20:30)
[2021-05-26 06:14] LABS: Basophils # (auto) 0.02 K/uL (0-0.2); Basophils % (auto) 0.3 %; Eosinophils # (auto) 0.04 K/uL (0-0.5); Eosinophils % (auto) 0.6 %; Hematocrit (blood only) 35.6 % (37-47); Hemoglobin 12.3 g/dL (12.0-16.0); Immature Granulocytes # (auto) 0.01 K/uL (0.00-0.02); Immature Granulocytes % (auto) 0.1 %; Lymphocytes # (auto) 1.42 K/uL (1.2-3.4); Lymphocytes % (auto) 20.7 %; Mean Corpuscular Hemoglobin 32.5 pg (25-34); Mean Corpuscular Hgb Conc 34.6 g/dL (32-36); Mean Corpuscular Volume 93.9 fL (80-100); Monocytes # (auto) 0.77 K/uL (0.11-0.59); Monocytes % (auto) 11.2 %; Neutrophils # (auto) 4.61 K/uL (1.4-6.5); Neutrophils % (auto) 67.1 %; Platelet Count 330 K/uL (130-400); RDW Coefficient of Variation 13.1 % (11.5-14.5); Red Blood Count 3.79 M/uL (4.2-5.4); White Blood Count 6.87 K/uL (4.8-10.8)
[2021-05-26 06:41] LABS: BUN Creatinine Ratio 6.3 (10-20); Calcium 8.5 mg/dl (8.5-10.1); Creatinine Clr Calc Pharmacy 85.7 ml/min; Est GFR (African American) 107.6 ml/min; Est GFR (Non-African American) 92.8 ml/min; Potassium 3.2 mmol/L (3.5-5.1)
--- NOTE | 2021-05-26 07:30 | Electrocardiogram Report ---
Test Reason : Blood Pressure : / mmHG Vent. Rate : 079 BPM Atrial Rate : 079 BPM P-R Int : 166 ms QRS Dur : 086 ms QT Int : 402 ms P-R-T Axes : 072 010 023 degrees QTc Int : 460 ms Sinus rhythm with atrial ectopy Nonspecific ST abnormality Otherwise normal ECG When compared with ECG of 21-AUG-2015 15:31, Nonspecific T wave abnormality now evident in Anterior leads Confirmed by Nick Bassett ([id number]) on 05/26/2021 7:29:25 AM Referred By: REFERRED SELF Confirmed By:Shaheen Bassett
[2021-05-26] MEDS: busPIRone 5 MG TAB PO SCH ×3 (08:41→20:10)
[2021-05-26] MEDS: CALCIUM 600MG + VIT D 400 IU TAB PO SCH ×2 (08:41→20:11)
[2021-05-26] MEDS: PHENYTOIN SODIUM ER 100 MG CAP PO SCH ×3 (08:42→20:10)
[2021-05-26] MEDS: POLYETHYLENE (MIRALAX) 17 GM PACK PO SCH (08:42)
[2021-05-26] MEDS: ACETAMINOPHEN 500 MG TAB PO SCH ×3 (08:45→20:14)
--- NOTE | 2021-05-26 10:23 | Hospitalist Progress Note ---
Date of Service May 26, 2021 Assessment & Plan (1) Abdominal pain: (2) Acute hyponatremia: (3) Weakness: Plan: 66-year-old female with a history of epilepsy, intellectual disability, prediabetes presenting with abdominal pain. Abdominal pain likely secondary to Constipation Patient reports 2-3 bowel movements, formed today which relieved her abdominal pain Denies abdominal pain at the time of my exam AST and ALT within normal limits Lipase normal Denies urinary symptoms Urinalysis not showing any signs of UTI CT abdomen and pelvis: 1. There are no acute infectious or inflammatory findings in the abdomen or pelvis. 2. Patchy nodular consolidative change is seen in the left lower lobe an likely represents an infectious/inflammatory pneumonitis. A 3 month follow-up chest CT scan is recommended to document resolution. 3. Additional findings as above. Positive bowel movements Abdominal pain resolved Advance diet to regular today and monitor closely Hyponatremia Likely hypovolemia Given IV NSS Sodium improved from 124 now 131 Likely from poor oral intake, with diuretic use Will need to hold off on Lasix until follow-up with PCP History of epilepsy Has not taken Dilantin secondary to nausea Resumed Dilantin 100 mg 3 times daily Mild back pain Lumbar spine x-ray: 1. No acute bony abnormality is seen involving the lumbar spine. 2. Osteopenia and mild spondylotic change as above. Does not complain of back pain today Hypertension Blood pressure still elevated Start lisinopril 5 mg p.o. daily As needed hydralazine DVT prophylaxis Lovenox subcutaneous daily Disposition-anticipate discharge to home medically stable tomorrow Lives in [facility], will need assistance with transportation to go home Admission and Anticipated Discharge Date Admission Date: May 25, 2021 Subjective Follow-up for abdominal pain, hyponatremia, etc. Seen resting in bed, comfortable, in good spirits Just ambulated in the de jesus with PT, tolerated well States abdominal pain has resolved, feeling better overall no chest pain, dyspnea, palpitations, dizziness No urinary symptoms, fevers or chills, nausea or vomiting No other symptoms Review of Systems Review of Systems: all noted and negative except for above Physical Exam Physical Exam: General- oriented x 2-3, not in distress, speaks in sentences with no effort or accessory muscle use Eyes- anicteric Neck- no JVD Lungs- clear breath sounds bilaterally, no rales/wheezes Heart- normal rate, regular rhythm; no murmurs Abdomen- normal bowel sounds, nondistended, soft, nontender Extremities- no pretibial edema, no calf tenderness Neuro- alert, oriented x 3; no gross focal neurologic deficits Skin- warm & dry Results & Data Results & Data ([facility]) Vital Signs (Past 12 Hours) Vital Signs Temp Pulse Resp BP Pulse Ox 05/26/21 07:56 36.8 C 79 16 162/84 H 95 all noted and reviewed including below (1) Abdominal pain Abdominal location: lower abdomen, unspecified Qualified Code(s): R10.30 - Lower abdominal pain, unspecified
[2021-05-26] MEDS: lisinopril 5 MG TAB PO SCH (13:23)
[2021-05-26] MEDS: POTASSIUM CHLORIDE CRTAB 20 MEQ TABCR PO SCH ×2 (13:24→20:11)
[2021-05-27 07:51] VITALS: BP 158/83; PULSE 76; TEMP 97.3; O2SAT 97
[2021-05-27] MEDS: POTASSIUM CHLORIDE CRTAB 20 MEQ TABCR PO SCH (08:43)
[2021-05-27] MEDS: CALCIUM 600MG + VIT D 400 IU TAB PO SCH (08:43)
[2021-05-27] MEDS: lisinopril 5 MG TAB PO SCH (08:43)
[2021-05-27] MEDS: ACETAMINOPHEN 500 MG TAB PO SCH ×2 (08:44→13:31)
[2021-05-27] MEDS: PHENYTOIN SODIUM ER 100 MG CAP PO SCH ×2 (08:44→13:31)
[2021-05-27] MEDS: busPIRone 5 MG TAB PO SCH ×2 (08:44→13:31)
[2021-05-27] MEDS: POLYETHYLENE (MIRALAX) 17 GM PACK PO SCH (08:44)
[2021-05-27 08:54] LABS: Calcium 8.4 mg/dl (8.5-10.1); Creatinine Clr Calc Pharmacy 94.8 ml/min; Est GFR (African American) 111.2 ml/min; Est GFR (Non-African American) 95.9 ml/min; Potassium 3.9 mmol/L (3.5-5.1)
--- NOTE | 2021-05-27 10:37 | Hospitalist Progress Note ---
Date of Service May 27, 2021 Assessment & Plan (1) Abdominal pain: (2) Acute hyponatremia: (3) Weakness: Plan: 66-year-old female with a history of epilepsy, intellectual disability, prediabetes presenting with abdominal pain. Abdominal pain likely secondary to Constipation Resolved after moving bowel Bowel movement this morning AST and ALT within normal limits Lipase normal Denies urinary symptoms Urinalysis not showing any signs of UTI CT abdomen and pelvis: 1. There are no acute infectious or inflammatory findings in the abdomen or pelvis. 2. Patchy nodular consolidative change is seen in the left lower lobe an likely represents an infectious/inflammatory pneumonitis. A 3 month follow-up chest CT scan is recommended to document resolution. 3. Additional findings as above. Positive bowel movements Abdominal pain resolved Tolerating diet and moving bowels will need repeat Chest CT as outpt in 3 months Hyponatremia Likely hypovolemia Given IV NSS Sodium improved from 124 now 131 Likely from poor oral intake, with diuretic use Will need to hold off on Lasix until follow-up with PCP Na improved to 132 today History of epilepsy Has not taken Dilantin secondary to nausea Resumed Dilantin 100 mg 3 times daily Mild back pain Lumbar spine x-ray: 1. No acute bony abnormality is seen involving the lumbar spine. 2. Osteopenia and mild spondylotic change as above. Does not complain of back pain today Hypertension Blood pressure elevated this morning, but improving, 158/83 Started lisinopril 5 mg p.o. daily 05/26 As needed hydralazine DVT prophylaxis Lovenox subcutaneous daily Disposition-pt medically stable, sodium improved, d/c today Lives in [facility] apartment, will need assistance with transportation to go home, will have CM discuss needs with pt, PT/OT consults done and reviewed Admission and Anticipated Discharge Date Admission Date: May 25, 2021 Supervising Physician Co-Signing Physician Notes Attending Addendum: care coordinated with MAHESH Aminata Jorge please refer to her notes for full details, I agree with her notes patient seen and examined, records reviewed by myself as well on exam, patient seen sitting up in bed, comfortable, not in distress Good spirits States she feels much better overall Abdominal pain has resolved No urinary symptoms ambulating with no problems no other symptoms VS noted and reviewed oriented x3, not in distress, speaks in sentences with no effort nor accessory muscle use normal rate, regular rhythm, no murmurs clear breath sounds bilaterally non distended, soft, nontender no bipedal edema, erythema, warmth no neuro deficits All labs noted and reviewed ASSESSMENT AND PLAN> HYPONATREMIA Likely secondary to dehydration, Lasix use Hold Lasix until follow-up with primary care physician HYPERTENSION Lisinopril started Blood pressure improved Continue lisinopril, follow-up with PCP in 1 week other diagnoses and plan of care as per MAHESH Jorge's notes Saad Layne MD Subjective Patient was seen and examined in room 353-1. Follow-up constipation and hyponatremia. She overall feels well this morning. She ate all of her breakfast. Denies fever, chills, sweats, lightheadedness, dizziness, chest pain, shortness of breath, nausea, vomiting. She is moving her bowels. She lives alone at home and is hoping to be discharged home. Review of Systems Review of Systems: All systems reviewed & are unremarkable except as noted in HPI & below Physical Exam Physical Exam: Gen: WD/WN, NAD, A&O x3 to basics only, sitting up in bed eating breakfast HEENT: Normocephalic, atraumatic, conjunctivae moist, sclerae anicteric, mucous membranes moist. Lung: Clear to Auscultation bilaterally, no wheezes/rales/rhonchi Heart: Regular rate, regular rhythm, no murmurs, rubs, or gallops Abdomen: Soft, NT, ND +BS x 4 Extremities: No edema Skin: Warm, no rash, negative turgor. Results & Data Results & Data ([facility]) Vital Signs (Past 12 Hours) Vital Signs Temp Pulse Resp BP Pulse Ox 05/27/21 07:50 36.3 C L 76 18 158/83 H 97 05/26/21 22:47 36.8 C 70 16 131/73 96 Laboratory Results [facility] 05/27/21 08:02 Sodium 132 L Potassium 3.9 D Chloride 101 Carbon Dioxide 25 BUN 4 L Creatinine 0.57 L Glucose 97 Calcium 8.4 L Medications Administered Current Inpatient Medications Acetaminophen (Acetaminophen 500 Mg Tab) 500 mg PO TID [facility] Stop: 06/24/21 08:59 Last Admin: 05/27/21 08:44 Dose: 500 mg Documented by: Buspirone HCl (Buspirone 5 Mg Tab) 10 mg PO TID [facility] Stop: 06/24/21 11:14 Last Admin: 05/27/21 08:44 Dose: 10 mg Documented by: Hydralazine HCl (Hydralazine Hcl 20 Mg/Ml Vial) 5 mg IV Q6H PRN PRN Reason: systolic bp > 160 Stop: 06/24/21 10:54 Ipratropium Hanson (Ipratropium Hanson Neb Soln 0.02% 2.5 Ml Vial) 0.5 mg INH Q4H PRN PRN Reason: SOB/WHEEZING Stop: 06/24/21 20:29 Last Admin: 05/25/21 21:47 Dose: 0.5 mg Documented by: Levalbuterol HCl (Levalbuterol 1.25mg/0.5ml Neb) 1.25 mg INH Q4H PRN PRN Reason: SOB/WHEEZING Stop: 06/24/21 20:29 Last Admin: 05/25/21 21:47 Dose: 1.25 mg Documented by: Lisinopril (Lisinopril 5 Mg Tab) 5 mg PO QAM [facility] Stop: 06/25/21 10:59 Last Admin: 05/27/21 08:43 Dose: 5 mg Documented by: Magnesium Hydroxide (Magnesium Hydroxide Susp 30 Ml Udc) 30 ml PO Q6H PRN PRN Reason: Constipation Stop: 06/24/21 10:54 Multivitamins/Minerals (Calcium 600mg + Vit D 400 Iu Tab) 1 tab PO BID [facility] Stop: 06/24/21 10:54 Last Admin: 05/27/21 08:43 Dose: 1 tab Documented by: Ondansetron HCl (Ondansetron Inj 2 Mg/Ml 2 Ml Vial) 4 mg IV Q4H PRN PRN Reason: Nausea And Vomiting Stop: 06/24/21 10:54 Phenobarbital (Phenobarbital 32.4 Mg Tab) 32.4 mg PO BID [facility] Stop: 06/24/21 10:54 Last Admin: 05/27/21 08:46 Dose: 32.4 mg Documented by: Phenytoin Sodium (Phenytoin Sodium Er 100 Mg Cap) 100 mg PO TID [facility] Stop: 06/25/21 08:59 Last Admin: 05/27/21 08:44 Dose: 100 mg Documented by: Polyethylene Glycol (Polyethylene (Miralax) 17 Gm Pack) 17 gm PO DAILY [facility] Stop: 06/24/21 10:54 Last Admin: 05/27/21 08:44 Dose: 17 gm Documented by: Potassium Chloride (Potassium Chloride Crtab 20 Meq Tabcr) 40 meq PO BID [facility] Stop: 06/25/21 10:59 Last Admin: 05/27/21 08:43 Dose: 40 meq Documented by: (1) Abdominal pain Abdominal location: lower abdomen, unspecified Qualified Code(s): R10.30 - Lower abdominal pain, unspecified
--- NOTE | 2021-05-27 12:55 | Discharge Summary ---
Date of Service May 27, 2021 Admission HPI Per Admitting Provider 66-year-old female with history of epilepsy, intellectual disability, prediabetes presenting with abdominal pain and constipation. Patient apparently brought in by ambulance after patient experienced abdominal pain earlier this morning. patient also reporting urinary symptoms and not being able to take her Dilantin secondary to nausea. At the ER, patient's sodium level found to be 124. CAT scan of abdomen pelvis: Unrevealing. Patient received 500 cc of IV NSS. On exam, patient was seen resting in bed, awake and alert, answers all questions appropriately. States she feels improved overall Abdominal pain, nausea has resolved. Denies any urinary symptoms, fevers or chills. No other symptoms. Admission Exam Per Admitting Provider General- oriented x 3, not in distress, speaks in sentences with no effort or accessory muscle use Head- atraumatic Eyes- PERRL, EOMI, anicteric ENT- oropharynx clear Neck- supple, no JVD, no adenopathy, no thyromegaly; carotids +2/2, no bruits appreciated Lungs- clear to auscultation bilaterally, no rales/wheezes Heart- normal rate, regular rhythm; no murmur, no gallop, no rub appreciated Abdomen- normal bowel sounds, nondistended, soft, nontender, no masses or hepatosplenomegaly Extremities- no pretibial edema, no calf tenderness; peripheral pulses intact Neuro- alert, oriented x 3; CN 2-12 grossly intact; motor 5/5 bilaterally;sensation 100% on all extremities; no other gross focal neurologic deficits Skin- warm & dry Principal Diagnosis Abdominal pain -resolved Constipation -resolved Hypovolemic hyponatremia -improving, sodium 132 at discharge Hypertension Hypokalemia Discharge Exam Gen: WD/WN, NAD, A&O x3 to basics only, sitting up in bed eating breakfast HEENT: Normocephalic, atraumatic, conjunctivae moist, sclerae anicteric, mucous membranes moist. Lung: Clear to Auscultation bilaterally, no wheezes/rales/rhonchi Heart: Regular rate, regular rhythm, no murmurs, rubs, or gallops Abdomen: Soft, NT, ND +BS x 4 Extremities: No edema Skin: Warm, no rash, negative turgor. Discharge Data Allergies Allergy/AdvReac Type Severity Reaction Status Date / Time aspirin Allergy Mild "GET SICK" Unverified 05/25/21 08:12 Consultations 05/25/21 08:19 ED Decision to Admit Stat Ordered Studies Abdomen/Pelvis CT 05/25/21 06:40 CT SCAN OF THE ABDOMEN AND PELVIS WITH IV CONTRAST CLINICAL HISTORY: Generalized abdominal pain. COMPARISON STUDY: No priors. TECHNIQUE: Following the IV administration of 94 cc of Optiray 320, CT scan of the abdomen and pelvis is performed from the lung bases to the proximal femora. Images are reviewed in the axial, sagittal, and coronal planes. IV contrast was administered without complication. A dose lowering technique was utilized adhering to the principles of ALARA. CT DOSE: 530.63 mGy.cm FINDINGS: Lung bases: The heart is normal in size and without pericardial effusion. Patchy nodular airspace consolidation is seen at the left lung base. The lung bases clear. No pleural effusion is identified. A small hiatal hernia is noted. Liver: The contrast-enhanced liver is normal in size, contour, and attenuation. There is no intrahepatic biliary ductal dilatation. The hepatic veins and portal veins are patent. Gallbladder: Unremarkable. Spleen: Normal in size and attenuation. Pancreas: Moderately atrophic and grossly unremarkable. Adrenal glands: Unremarkable. Kidneys: The contrast enhanced kidneys demonstrate mild cortical atrophy and are without hydronephrosis. The kidneys enhance symmetrically. Scattered subcentimeter cortical hypodensities likely represent cysts but are too small for definitive characterization. Abdominal vasculature: The abdominal aorta is normal in course and caliber. Bowel: The small bowel and colon are normal in course and caliber. The appendix is well-visualized and normal. Peritoneum: There is no intraperitoneal free air or abdominal ascites. Lymphadenopathy: None. Pelvic viscera: The bladder, uterus, and adnexa are normal as visualized. Skeletal structures: The skeletal structures are osteopenic. There is mild to moderate lumbosacral spondylosis. A large posterior disc osteophyte complexes seen at T12-L1. No lytic or blastic lesions are seen. IMPRESSION: 1. There are no acute infectious or inflammatory findings in the abdomen or pelvis. 2. Patchy nodular consolidative change is seen in the left lower lobe an likely represents an infectious/inflammatory pneumonitis. A 3 month follow-up chest CT scan is recommended to document resolution. 3. Additional findings as above. ACT 112: Positive. There are findings on this exam that require communication between the performing entity and the patient following Patient Test Result [place] Act ([place] Act 112) guidelines. Electronically signed by: Radames Morrison M.D. 05/25/2021 7:37 AM Lumbar Spine X-Ray 05/25/21 08:53 LUMBAR SPINE 3 VIEWS CLINICAL HISTORY: Low back pain. FINDINGS: Three views of the lumbar spine are correlated with abdominal CT performed the same day 05/25/2021. The skeletal structures are osteopenic. There is no radiographic evidence of fracture or malalignment involving the lumbar spine. Vertebral body height and alignment are maintained throughout the lumbar spine. Anterior and lateral marginal osteophytes are seen throughout. The transverse and spinous processes appear intact. The disc spaces appear maintained. A posterior disc osteophyte complex is noted at T12-L1. The visualized sacrum and bony pelvis appear intact. Excreted IV contrast is noted within the renal collecting systems. There is no bowel obstruction. IMPRESSION: 1. No acute bony abnormality is seen involving the lumbar spine. 2. Osteopenia and mild spondylotic change as above. Dictated: 05/25/2021 10:14 AM Transcribed: 05/25/2021 10:28 AM [facility] [id number] [facility] Electronically signed by: Radames Morrison M.D. 05/25/2021 10:47 AM Short CBC 05/25/21 05/25/21 05/25/21 Range/Units 06:50 11:24 16:51 Potassium 3.1 L 3.3 L 3.1 L (3.5-5.1) mmol/L 05/26/21 05/27/21 Range/Units 05:42 08:02 Potassium 3.2 L 3.9 D (3.5-5.1) mmol/L BMP 05/27/21 08:02 Sodium 132 L Potassium 3.9 D Chloride 101 Carbon Dioxide 25 BUN 4 L Creatinine 0.57 L Glucose 97 Calcium 8.4 L Hospital Course (1) Abdominal pain: (2) Acute hyponatremia: (3) Weakness: This is a 66-year-old female with a history of epilepsy, intellectual disability, prediabetes presenting with abdominal pain. Patient abdominal pain was found to be secondary to constipation. Her symptoms resolved after having regular bowel movements. Her liver functions were within normal limits. Her lipase was WNL. She denied any urinary symptoms and urinalysis was negative for UTI. Her CT abdomen pelvis did not show any acute infectious or inflammatory findings. It did reveal patchy nodular consolidative changes in the left lower lobe likely representing an infectious/inflammatory pneumonitis. A 3-month follow-up chest CT is recommended to document resolution. She remained asymptomatic from pulmonary perspective and was saturating well on room air. She was also found to be hyponatremic with an admitting serum sodium of 124. It was felt to be secondary to hypovolemia as well as concurrent ministration of Lasix. Her Lasix was placed on hold and she was started on IV fluids. Her sodium gradually improved on day of discharge her sodium was 132. It is recommended she remain off Lasix until she follows up with PCP and has repeat BMP. Her potassium was initially low and this was replaced. Lastly throughout hospitalization she remained hypertensive. She was started on low-dose lisinopril 5 mg daily. It is recommended she monitor blood pressure daily and follow-up closely with PCP. On day of discharge her creatinine was 0.57. It is recommended she have repeat BMP in 1 week to monitor sodium, potassium and renal function. On day of discharge patient was alert and oriented x3 and was euvolemic. She had 2 bowel movements on day of discharge. RECOMMENDATIONS FOR FOLLOW-UP: Follow up with PCP on 05/30/2021 at 11 AM. Please arrive 15 minutes prior to your scheduled appointment. Recommend BMP within 1 week of discharge to monitor sodium, potassium and kidney function due to initiation of new blood pressure medication, lisinopril. Follow up Chest CT in 3 months due to abnormal CT of abdomen/pelvis that showed inflammatory changes to Left Lung Base. Recommend monitoring your blood pressure twice daily. Keep a log of your blood pressure and take it with you to your follow up appointment. Please take all medications as prescribed. Please do not take the medication Lasix (furosemide), until you have a repeat lab work and follow-up with your PCP. You may take [id number] stool softeners to aid in regular bowel movement. Also recommend 64 ounces of noncaffeinated beverages, specifically water daily. Please avoid anti inflammatory medications as this may raise your blood pressure. These medications include ibuprofen, Aleve, Motrin, Naprosyn, naproxen or Excedrin. Please treat pain or fever with Tylenol 500 mg every 6 hours as needed. Total Time Total Time Spent Total Time Spent (In Minutes): 60 minutes Total Time Includes: Examination of the Patient, Discharge Planning, Medication Reconciliation, Communication With Other Providers and Other Discharge Plan Discharge Items Patient Disposition: Home - Self-Care Reason For Visit: HYPONATREMIA, ABDOMINAL PAIN Discharge Diagnosis: Abdominal pain -resolved Constipation -resolved Hypovolemic hyponatremia -improving, sodium 132 at discharge Hypertension Hypokalemia Condition on Discharge: Good Activity: Resume your previous activity Non-emergency contact: Primary Care Provider Call non-emergency contact if: you have any medication questions, your symptoms worsen, your pain is not controlled, your pain is worsening, your pain is unusual for you, your pain is concerning for you, you have a fever and your temperature is above 101 Follow-up/Referrals: Terri Barrios PA-C [Primary Care Provider] - (Date & Time 05/30/2021 11:00 AM Provider Drake Che III, MD Department [facility] ) Diet: Regular Addtl Attending Provider Instructions: MEDICATION CHANGES: You were started on lisinopril 5 mg daily secondary to high blood pressure. Please hold Lasix due to low sodium levels. Please refer to your primary care provider on if you need to resume this. SUMMARY OF TEST RESULTS: You were admitted to hospital secondary to abdominal pain. It was determined you were constipated. You were treated with stool softeners and bulk laxatives. This resulted in bowel movements and resolution of your abdominal pain. You were also found to be hyponatremic. This was felt to be secondary to dehydration. Your medication, Lasix (furosemide), was held and you received IV fluid. Your sodium level gradually improved. Your potassium was also low and this was replaced. Your blood pressure was high during hospitalization you were started on the medication, lisinopril. It is recommended you have a repeat BMP at your follow-up appointment with Dr. Che. PENDING TEST RESULTS: None RECOMMENDATIONS FOR FOLLOW-UP: Follow up with PCP on 05/30/2021 at 11 AM. Please arrive 15 minutes prior to your scheduled appointment. Recommend BMP within 1 week of discharge to monitor sodium, potassium and kidney function due to initiation of new blood pressure medication, lisinopril. Follow up Chest CT in 3 months due to abnormal CT of abdomen/pelvis that showed inflammatory changes to Left Lung Base. Recommend monitoring your blood pressure twice daily. Keep a log of your blood pressure and take it with you to your follow up appointment. Please take all medications as prescribed. Please do not take the medication Lasix (furosemide), until you have a repeat lab work and follow-up with your PCP. You may take [id number] stool softeners to aid in regular bowel movement. Also recommend 64 ounces of noncaffeinated beverages, specifically water daily. Please avoid anti inflammatory medications as this may raise your blood pressure. These medications include ibuprofen, Aleve, Motrin, Naprosyn, naproxen or Excedrin. Please treat pain or fever with Tylenol 500 mg every 6 hours as needed. OTHER INSTRUCTIONS: Seek medical attention if you have: * temperature above 101 * chest pain or trouble breathing * abdominal pain, nausea, vomiting * diarrhea, dark stools or bloody stools * any unanswered questions or concerns Call 911 if symptoms are severe. Please take good care of yourself. It has been a pleasure taking care of you. Please take care of yourself. If you have any questions regarding your recent hospitalization please contact [facility] and request [facility] @ [phone]. Aminata Kuhn PA-C Pending Studies at Discharge: No Stand-Alone Forms: My [facility], Smoking Cessation Medications and DC Order Prescriptions: New lisinopril [Zestril] 5 mg Tablet 5 mg PO QAM Qty: 30 RF: 0 Continued phenobarbital 32.4 mg tablet 32.4 mg PO BID RF: 0 buspirone 10 mg tablet 10 mg PO TID RF: 0 topiramate [Topamax] 25 mg tablet 25 mg PO BID RF: 0 sumatriptan succinate 50 mg tablet 50 mg PO Q2H PRN (Reason: Headache) RF: 0 phenytoin sodium extended 100 mg capsule 100 mg PO TID RF: 0 Discontinued furosemide 20 mg tablet 20 mg PO Q OTHER DAY RF: 0 Discharge Orders: Discharge Order (Routine); Ordered 05/27/21 Ordered By: Aminata Kuhn Admission Data Admit Date/Time: 05/25/21 08:53 Attending Provider: Saad Layne Admit Provider: Saad Layne Primary Care Provider: Terri Barrios Other Providers: Saad Layne ; Aminata Kuhn Other Interventions: Discharge Summary Assessment (RN) Last Done: 05/27/21 13:38 Supervising Physician Co-Signing Physician Notes Attending Addendum: care coordinated with MAHESH Jorge please refer to her notes for full details, I agree with her notes patient seen and examined, records reviewed by myself as well on exam, patient seen sitting up in bed, comfortable, not in distress Good spirits States she feels much better overall Abdominal pain has resolved No urinary symptoms ambulating with no problems no other symptoms VS noted and reviewed oriented x3, not in distress, speaks in sentences with no effort nor accessory muscle use normal rate, regular rhythm, no murmurs clear breath sounds bilaterally non distended, soft, nontender no bipedal edema, erythema, warmth no neuro deficits All labs noted and reviewed ASSESSMENT AND PLAN> HYPONATREMIA Likely secondary to dehydration, Lasix use Hold Lasix until follow-up with primary care physician HYPERTENSION Lisinopril started Blood pressure improved Continue lisinopril, follow-up with PCP in 1 week other diagnoses and plan of care as per MAHESH Jorge's notes Saad Layne MD
== END 2021-05-27 14:30 | disposition home or self-care (01) | DRG 392 ==
LOC: ED 06:21 → 3W 08:53